=== PATIENT | female | born 1950 | race Caucasian/White ===

== ENCOUNTER → 2017-11-07 | Day surgery (SDC) | payer MEDICARE, OTHER ==
[2017-11-02 09:58] VITALS: BMI 32.1
[~2017-11-07] MED LIST: PROPOFOL 10 MG/ML 20 ML VIAL IV ONE
--- NOTE | 2017-11-07 13:44 | PCN ---
PROCEDURE NOTE REQUESTING PHYSICIAN: Dr. Mee Jackson BRIEF HISTORY: The patient is a 67-year-old pleasant white female scheduled for an elective colonoscopy as part of evaluation of prior history of colon polyps. Last colonoscopy was 3 years ago. PROCEDURE PERFORMED: Colonoscopy with snare polypectomy. PREOPERATIVE DIAGNOSIS: History of colon polyps. SEDATION: IV sedation by anesthesia. PROCEDURE: After informed consent was obtained, the patient was brought into the endoscopy unit. IV conscious sedation was administered by anesthesia under continuous monitoring. Initial digital rectal examination was normal. The Olympus CF 90 video colonoscope was then into the rectum and advanced to the cecum without any difficulty. Careful examination was performed as the scope was gradually being withdrawn. The ileocecal valve and appendiceal orifice were visualized and appeared normal. The prep was excellent. The mucosa of the cecum appeared normal. In the ascending colon, there was a 5 mm polyp that was removed by snare polypectomy. The distal ascending colon, transverse colon, descending colon, sigmoid colon and rectum appeared normal. In the rectum, retroflexion was performed. Internal hemorrhoids were seen. The patient tolerated the procedure well. IMPRESSION: 1. A 5 mm ascending colon polyp status post snare polypectomy. 2. Small internal hemorrhoids. RECOMMENDATION: Findings of this examination were discussed with the patient as well as the family. She was advised to follow up with the biopsy results and she can have a repeat colonoscopy in 5 years. MMODL / IJN: [id number] /
== END ==
LOC: ORWHC2ENDO 06:59
PROVIDERS: ATTEND Internal Medicine Gastroenterology
DX: Z12.11 Encounter for screening for malignant neoplasm of colon (principal); Z86.010 Personal history of colon polyps; D12.2 Benign neoplasm of ascending colon; K64.8 Other hemorrhoids; I25.10 Atherosclerotic heart disease of native coronary artery without angina pectoris; I10 Essential (primary) hypertension; I25.2 Old myocardial infarction; E07.9 Disorder of thyroid, unspecified; F39 Unspecified mood [affective] disorder; Z95.5 Presence of coronary angioplasty implant and graft; Z79.01 Long term (current) use of anticoagulants; Z79.890 Hormone replacement therapy; Z79.899 Other long term (current) drug therapy; Z88.1 Allergy status to other antibiotic agents; Z88.2 Allergy status to sulfonamides; Z88.0 Allergy status to penicillin; Z91.013 Allergy to seafood
CPT/HCPCS: 88305; 45385; J2704

== ENCOUNTER 2022-08-30 11:26 | Day surgery (SDC) | payer MEDICARE, OTHER ==
[2022-08-25 18:16] VITALS: BMI 27.7
[~2022-08-30 11:26] MED LIST changes: +LACTATED RINGERS 1,000 ML IV SCH; +LIDOCAINE 1% (10MG/ML) FOR IV START INTRADERMA PRN; -PROPOFOL 10 MG/ML 20 ML VIAL IV ONE
[2022-08-30 11:45] VITALS: RESP 16; TEMP 97.7
[2022-08-30] MEDS ORDERED: PROPOFOL 10 MG/ML 20 ML VIAL IV ONE (12:11)
[2022-08-30] MEDS ORDERED: LIDOCAINE 2% INJ 20 MG/ML (2 ML VIAL) ONE (12:11)
--- NOTE | 2022-08-30 12:31 | P.PCN ---
Date of Procedure: 08/30/22 Procedure(s) Performed: BRIEF HISTORY: Patient is a 71-year-old pleasant white female scheduled for an elective colonoscopy as a part of evaluation of intermittent rectal bleeding. She also has prior history of colon polyps. Last colonoscopy was 5 years ago. PROCEDURE PERFORMED: Colonoscopy with snare polypectomy and biopsy. PREOPERATIVE DIAGNOSIS: History of colon polyps and intermittent rectal bleeding. IV sedation per Anesthesia. PROCEDURE: After informed consent was obtained, the patient, was brought into the endoscopy unit. IV sedation was administered by Anesthesia under continuous monitoring. Digital rectal examination was normal. Initially the Olympus CF-160 flexible video colonoscope was then inserted in the rectum, gradually advanced into the cecum without any difficulty. Careful examination was performed as the scope was gradually being withdrawn. Ileocecal valve and the appendiceal orifice were visualized and appeared normal. Prep was excellent. Mucosa of the cecum, had a 3 mm polyp that was removed by cold biopsy. In the ascending colon there was a 5 mm and 1 cm polyp removed by snare polypectomy. Rest of the ascending colon, transverse colon, descending colon, sigmoid colon, and rectum appeared normal. In the sigmoid colon there was a 3 mm polyp removed by snare polypectomy Retroflexion was performed in the rectum and small internal hemorrhoids were seen. The patient tolerated the procedure well. IMPRESSION: 3 mm cecal polyp status post cold biopsy 5 mm and 1 cm ascending colon polyp status post snare polypectomy 3 mm; sigmoid polyp status post polypectomy Small internal hemorrhoids RECOMMENDATIONS: Findings of this examination were discussed with the patient as well as her family. She was advised to follow with the biopsy results. If the biopsy results adenoma she can have a repeat colonoscopy in 3 years..
[2022-08-30 12:44] VITALS: PULSE 60
[2022-08-30 13:11] VITALS: BP 135/72
== END 2022-08-30 13:19 | disposition home or self-care (01) ==
LOC: ORWHC2ENDO 11:26
PROVIDERS: ATTEND Internal Medicine Gastroenterology
DX: D12.0 Benign neoplasm of cecum (principal); D12.2 Benign neoplasm of ascending colon; D12.5 Benign neoplasm of sigmoid colon; K64.8 Other hemorrhoids; K62.5 Hemorrhage of anus and rectum; Z88.8 Allergy status to other drugs, medicaments and biological substances; Z79.899 Other long term (current) drug therapy; I25.10 Atherosclerotic heart disease of native coronary artery without angina pectoris; I25.2 Old myocardial infarction; I10 Essential (primary) hypertension; E78.5 Hyperlipidemia, unspecified; Z95.5 Presence of coronary angioplasty implant and graft; Z87.891 Personal history of nicotine dependence; K21.9 Gastro-esophageal reflux disease without esophagitis
CPT/HCPCS: 88305; 45380; 45385; J2704; J2001